=== PATIENT | female | born 1985 | race Caucasian/White ===

== ENCOUNTER 2016-07-04 11:32 | Inpatient (IN) | payer OTHER ==
[2016-07-04 13:01] LABS: BASOPHIL 0.3 % (0-2.0); EOSINOPHIL 0.2 % (0-4.5); MCHC 33.7 g/dl (32.0-36.0); MEAN PLT VOLUME 9.8 fl (7.5-11.1); NEUTROPHILS 80.3 % (42.8-82.8); PLATELET COUNT 193 K/MM3 (134-434); RDW 13.8 % (11.6-15.6)
[2016-07-04 13:35] LABS: URINE APPEARANCE CLEAR; URINE BILIRUBIN NEGATIVE (NEGATIVE); URINE COLOR YELLOW; URINE GLUCOSE (UA) NEGATIVE (NEGATIVE); URINE KETONE NEGATIVE (NEGATIVE); URINE LEUK ESTERASE NEGATIVE (NEGATIVE); URINE NITRITE NEGATIVE (NEGATIVE); URINE UROBILINOGEN NEGATIVE E.U./dl (0.2-1.0)
[2016-07-04 13:45] LABS: ALBUMIN 2.4 g/dl (3.4-5.0); ANION GAP 11 (8-16); BILIRUBIN,TOTAL 0.3 mg/dL (0.2-1.0); CO2 21 mmol/L (21-32); CREATININE 0.7 mg/dL (0.55-1.02); GLUCOSE,RANDOM 101 mg/dL (74-106); SGOT/AST 56 U/L (15-37); SGPT/ALT 71 U/L (12-78); TOT PROT 6.1 g/dl (6.4-8.2); URIC ACID 5.3 mg/dL (2.6-7.2)
[2016-07-04 13:46] LABS: ALK PHOS 333 U/L (45-117)
[2016-07-04 14:06] LABS: URINE BLOOD 1+ (NEGATIVE); URINE PROTEIN 2+ (NEGATIVE)
[2016-07-04 14:10] LABS: URINE BACTERIA RARE /hpf (NONE SEEN); URINE HYALINE CAST 1 /lpf; URINE MUCUS RARE; URINE RBC 9 /hpf (0-3); URINE WBC 10 /hpf (3-5)
[2016-07-04] MEDS ORDERED: TUBERCULIN PPD 5 TU/0.1ML SYRINGE (IN PATIENT USE ONLY) ID ONE (14:45)
[2016-07-04] MEDS ORDERED: DINOPROSTONE 10 MG VAGINAL SUPPOSITORY VG ONE (14:58)
--- NOTE | 2016-07-04 15:03 | HP ---
Past Medical History - Primary Care Physician PCP:: Chuy Dean - Admission Chief Complaint: 39.4 weeks. pih for cervidil induction History of Present Illness: to be induced - Past Medical History ...: 1 ...Para: 0 ...Term: 0 ...: 0 ...Spon : 0 ...Induced : 0 ...LMP: 10/01/15 ... Weeks Gestation by Dates: 39.4 ...EDC by Dates: 07/07/16 ...EDC by Sono: 07/07/16 - Past Surgical History Hx Myomectomy: No Hx Transabdominal Cerclage: No - Smoking History Smoking history: Never smoked - Alcohol/Substance Use Hx Alcohol Use: No - Social History Usual Living Arrangement: Yes: With Significant Other History of Recent Travel: No Home Medications - Allergies Allergies/Adverse Reactions: Allergies Allergy/AdvReac Type Severity Reaction Status Date / Time No Known Allergies Allergy Verified 07/04/16 12:51 - Home Medications Home Medications: Ambulatory Orders Pnv95/Ferrous Fumarate/FA [ Caplet] 1 tab PO DAILY 07/04/16 Review of Systems - Review of Systems Constitutional: reports: No Symptoms Eyes: reports: No Symptoms HENT: reports: No Symptoms Neck: reports: No Symptoms Cardiovascular: reports: No Symptoms Respiratory: reports: No Symptoms Gastrointestinal: reports: No Symptoms Genitourinary: reports: No Symptoms Musculoskeletal: reports: No Symptoms Integumentary: reports: No Symptoms Neurological: reports: No Symptoms Endocrine: reports: No Symptoms Hematology/Lymphatic: reports: No Symptoms Psychiatric: reports: No Symptoms Physical Exam - Maternity Vital Signs: Vital Signs Temperature 97.9 F 07/04/16 12:00 Pulse Rate 89 07/04/16 14:00 Respiratory Rate 18 07/04/16 14:00 Blood Pressure 137/85 07/04/16 14:00 O2 Sat by Pulse Oximetry (%) Constitutional: Yes: Well Nourished, No Distress, Calm Eyes: Yes: WNL, Conjunctiva Clear, EOM Intact HENT: Yes: WNL, Atraumatic, Normocephalic Neck: Yes: WNL, Supple, Trachea Midline Cardiovascular: Yes: WNL, Regular Rate and Rhythm Breast(s): Yes: WNL - Abdominal Exam/OB Fundal Height: 38 Contractions: No Regularity: Irritability Intensity: Unaware Monitor Mode: External Heart Rate Location: [facility] Category: I Accelerations: Uniform Decelerations: None - Vaginal Exam/OB Speculum Exam: No Dilatation (cm): closed Effacement (%): 0 Amniotic Membrane Status: Intact Nitrazine Test: Negative Presentation: Vertex/Position Station: -3 - Physical Exam Edema: Yes Edema: LLE: Trace, RLE: Trace ...Motor Strength: WNL Psychiatric: Yes: WNL - Labs Lab Results: CBC, BMP 07/04/16 12:20 07/04/16 12:20 Problem List - Problems (1) with 39 completed weeks gestation Code(s): Z3A.39 - 39 WEEKS GESTATION OF (2) induced hypertension, antepartum Code(s): O13.9 - GESTATIONAL HTN W/O SIGNIFICANT PROTEINURIA, UNSP TRIMESTER (3) Elective induction of labor planned Code(s): FYZ1684 - Assessment/Plan admit, fhm, cervidil rba discussed
[2016-07-04 15:14] LABS: INR 0.97 (0.82-1.09); PROTHROMBIN TIME (PATIENT) 10.7 SEC (9.98-11.88)
[2016-07-04 15:17] LABS: ACTIVATED PTT 29.1 SECONDS (26.9-34.4)
--- NOTE | 2016-07-04 16:00 | PN ---
Progress Note (short form) - Note Progress Note: cervidil inserted 3 08 pm, cx clp Problem List - Problems (1) with 39 completed weeks gestation Code(s): Z3A.39 - 39 WEEKS GESTATION OF (2) induced hypertension, antepartum Code(s): O13.9 - GESTATIONAL HTN W/O SIGNIFICANT PROTEINURIA, UNSP TRIMESTER (3) Elective induction of labor planned Code(s): [id number] -
[2016-07-04 16:20] VITALS: BMI 32.3
[2016-07-04] MEDS ORDERED: DEXTROSE 5%-LACTATED RINGERS 500 ML IV ONE ×4 (20:15→21:15)
[2016-07-05] MEDS ORDERED: OXYTOCIN 15 UNITS/ LR 250 ML 250 ML IVPB SCH (05:00)
--- NOTE | 2016-07-05 08:31 | PN ---
Progress Note (short form) - Note Progress Note: on pitocin , cx clp, vx -3 mi, fhr cat 1contraction q 2min Problem List - Problems (1) with 39 completed weeks gestation Code(s): Z3A.39 - 39 WEEKS GESTATION OF (2) induced hypertension, antepartum Code(s): O13.9 - GESTATIONAL HTN W/O SIGNIFICANT PROTEINURIA, UNSP TRIMESTER (3) Elective induction of labor planned Code(s): [id number] -
[2016-07-05] MEDS ORDERED: LABETALOL HCL 200 MG TABLET (FP) PO ONE (09:36)
[2016-07-05] MEDS ORDERED: CITRIC ACID/SODIUM CITRATE 30 ML UNIT-DOSE CUP PO ONE (10:24)
[2016-07-05] MEDS ORDERED: ELECTROLYTE-148 SOLN 1,000 ML IV SCH (10:30)
--- NOTE | 2016-07-05 10:30 | PN ---
Progress Note (short form) - Note Progress Note: c/o headache, crying, no blurred vision bp 156/98 abdomen soft, non tender cx clp, vx -3 mi, fhr cat 1 contraction q 3 min, wants c/s , risks discussed, Problem List - Problems (1) with 39 completed weeks gestation Code(s): Z3A.39 - 39 WEEKS GESTATION OF (2) induced hypertension, antepartum Code(s): O13.9 - GESTATIONAL HTN W/O SIGNIFICANT PROTEINURIA, UNSP TRIMESTER (3) Elective induction of labor planned Code(s): [id number] -
[2016-07-05] MEDS ORDERED: ACETAMINOPHEN 325 MG TABLET (FP) PO ONE (10:44)
[2016-07-05] MEDS: OXYTOCIN 20 UNITS in 0.9% NS 1,000 ML IV SCH ×2 (11:20→13:50)
[2016-07-05] MEDS ORDERED: ONDANSETRON 4 MG/2 ML VIAL IVPB PRN (11:35)
[2016-07-05] MEDS ORDERED: METHYLERGONOVINE MALEATE 0.2 MG/1 ML AMP IM PRN (12:07)
[2016-07-05] MEDS ORDERED: IBUPROFEN 600 MG TABLET (FP) PO PRN (12:07)
[2016-07-05] MEDS ORDERED: oxyCODONE HCL 5 MG TABLET PO PRN (12:07)
[2016-07-05] MEDS ORDERED: BENZOCAINE 28 GM HEMORRHOIDAL OINTMENT PR PRN (12:07)
[2016-07-05] MEDS ORDERED: WITCH HAZEL 50% (TUCKS) 40 PAD/JAR PAD TP PRN (12:07)
[2016-07-05] MEDS ORDERED: diphenhydrAMINE HCL 25 MG CAPSULE (FP) PO PRN (12:07)
[2016-07-05] MEDS ORDERED: BENZOCAINE 20% 57 GM BOTTLE TP PRN (12:07)
[2016-07-05] MEDS ORDERED: IBUPROFEN 800 MG/8 ML IJ IVPB PRN (12:07)
--- NOTE | 2016-07-05 16:26 | OP ---
DATE OF OPERATION: 07/05/2016 PREOPERATIVE DIAGNOSES: , 39 weeks; preeclampsia; Cervidil induction and Pitocin induction; failure of induction. POSTOPERATIVE DIAGNOSES: , 39 weeks; preeclampsia; Cervidil induction and Pitocin induction; failure of induction. PROCEDURE: Primary low-segment transverse section. SURGEON: iRtu Dean MD MISSILE INSPECTOR PREFLIGHT: DULCE Flores ANESTHESIA: Spinal. ANESTHESIOLOGIST: Henry Mello MD ESTIMATED BLOOD LOSS: 500 mL. DESCRIPTION: Patient was taken to operating room. Adequate spinal anesthesia. Abdomen and perineum was prepped and draped. Pfannenstiel abdominal skin incision was made, abdominal wall was cut layer by layer until peritoneum was exposed and incised. Upon entering abdominal cavity, lower uterine segment was identified and uterovesical fold of peritoneum established, bladder was pushed down. Then with the lower blade of the Mildred retractor in the pelvis, a low transverse incision was made, incision extended laterally. Amniotic sac was entered, clear fluid. Head delivered, nasopharynx was suctioned. Live baby was delivered from occiput posterior position, cord around the neck x1. Placenta was delivered manually. Uterine cavity was cleaned of all remaining tissue. Uterine incision was closed in 2 layers, 1st layer with 0 Biosyn continuous suture, the 2nd layer with 0 Biosyn imbricating the 1st layer. Bladder flap was closed with 0 Biosyn continuous suture. Both tubes and ovaries were checked, were normal, no active bleeding was seen. All the lap and sponge, instrument count were correct. Peritoneum was closed with 0 Biosyn continuous suture. Muscles were brought together with interrupted suture of 0 Biosyn. Fascia was closed with 0 Biosyn continuous suture, subcutaneous fat with interrupted suture of 0 Biosyn, and the skin was closed with 4-0 Biosyn subcuticular suture. Patient tolerated procedure well, left the OR in good condition. RITU DEAN M.D. [id number]
[2016-07-05] MEDS: CEFAZOLIN 1 GM/D5W 50 ML IVPB SCH (18:22)
[2016-07-05] MEDS: DEXTROSE 5%-LACTATED RINGERS 1,000 ML IV SCH (21:30)
[2016-07-06] MEDS: CEFAZOLIN 1 GM/D5W 50 ML IVPB SCH (01:00)
--- NOTE | 2016-07-06 08:24 | PN ---
Progress Note (short form) - Note Progress Note: pod 1 , pih, no c/o ,no headache, lloyd clear urine , adequate out put CBC, BMP 07/04/16 12:20 Last Vital Signs Temp Pulse Resp BP Pulse Ox 98.1 F 74 18 132/78 99 07/06/16 06:00 07/06/16 06:00 07/06/16 06:00 07/06/16 06:00 07/05/16 13:20 abdomen soft,no distension, no cva incision dry, clean no calf tenderness DTR normal, trace edema plan , monitor bp, ambulate, cbc , advance diet Problem List - Problems (1) with 39 completed weeks gestation Code(s): Z3A.39 - 39 WEEKS GESTATION OF (2) induced hypertension, antepartum Code(s): O13.9 - GESTATIONAL HTN W/O SIGNIFICANT PROTEINURIA, UNSP TRIMESTER (3) Elective induction of labor planned Code(s): [id number] -
[2016-07-06 09:04] LABS: BASOPHIL 0.3 % (0-2.0); EOSINOPHIL 0.4 % (0-4.5); MCH 29.6 pg (25.7-33.7); MCHC 34.2 g/dl (32.0-36.0); MEAN CELL VOLUME 86.7 fl (80-96); MEAN PLT VOLUME 9.6 fl (7.5-11.1); NEUTROPHILS 74.1 % (42.8-82.8); PLATELET COUNT 130 K/MM3 (134-434); RDW 14.1 % (11.6-15.6); WHITE BLOOD COUNT 8.2 K/mm3 (4.0-10.0)
[2016-07-06] MEDS: oxyCODONE HCL 5 MG TABLET PO PRN ×3 (09:53→23:09)
[2016-07-06] MEDS: SIMETHICONE 80 MG TAB.CHEW (FP) PO PRN ×3 (09:55→21:27)
[2016-07-06] MEDS ORDERED: BISACODYL 10 MG SUPP.RECT RC PRN (12:07)
--- NOTE | 2016-07-06 12:18 | PN ---
Progress Note (short form) - Note Progress Note: Anesthesia postop note 31 y/o F s/p spinal anesthesia for section, duramorph for postop pain management. POD#1, aaox3, vss, ambulating, no complaints. No anesthesia complications.
[2016-07-06] MEDS: ACETAMINOPHEN 325 MG TABLET (FP) PO PRN ×2 (17:30→23:08)
[2016-07-06] MEDS ORDERED: ACETAMINOPHEN 325 MG TABLET (FP) ONE (17:33)
[2016-07-07] MEDS: ACETAMINOPHEN 325 MG TABLET (FP) PO PRN ×3 (04:42→23:48)
[2016-07-07] MEDS: SIMETHICONE 80 MG TAB.CHEW (FP) PO PRN ×2 (04:42→23:48)
[2016-07-07] MEDS: LABETALOL HCL 200 MG TABLET (FP) PO PRN ×2 (08:44→22:07)
--- NOTE | 2016-07-07 09:37 | PN ---
Post Progress Note - Subjective Subjective: 31 P1 s/p 1' LST c/s for failed IOL for Preeclampsia Post Day: 2 Type of Delivery: Primary C/S Vital Signs: Vital Signs Temperature 98.6 F 07/06/16 22:00 Pulse Rate 84 07/06/16 22:00 Respiratory Rate 18 07/06/16 22:00 Blood Pressure 126/79 07/06/16 22:00 O2 Sat by Pulse Oximetry (%) 99 07/05/16 13:20 Breast Exam: Yes: Soft Uterus: Yes: Fundus Firm, Non-tender Incision: Yes: Sutures intact Abdomen/GI: Yes: Abdomen soft, Passing flatus, Tolerating PO Lochia: Yes: Rubra Lochia, amount: Small Extremities: Yes: Calves non-tender Activity: Ambulating - Labs Labs: CBC WBC 8.2 K/mm3 (4.0-10.0) 07/06/16 06:15 RBC 3.18 M/mm3 (3.60-5.2) L D 07/06/16 06:15 Hgb 9.4 GM/dL (10.7-15.3) L D 07/06/16 06:15 Hct 27.6 % (32.4-45.2) L D 07/06/16 06:15 MCV 86.7 fl (80-96) 07/06/16 06:15 MCHC 34.2 g/dl (32.0-36.0) 07/06/16 06:15 RDW 14.1 % (11.6-15.6) 07/06/16 06:15 Plt Count 130 K/MM3 (134-434) L D 07/06/16 06:15 MPV 9.6 fl (7.5-11.1) 07/06/16 06:15 Neutrophils % 74.1 % (42.8-82.8) 07/06/16 06:15 Lymphocytes % 18.2 % (8-40) D 07/06/16 06:15 Monocytes % 7.0 % (3.8-10.2) 07/06/16 06:15 Eosinophils % 0.4 % (0-4.5) D 07/06/16 06:15 Basophils % 0.3 % (0-2.0) 07/06/16 06:15 Retic Count 1.82 % (0.5-1.5) H 07/04/16 12:20 Haptoglobin 38 mg/dL (34-200) 07/04/16 12:20 Assessment/Plan 31 P1 s/p 1' LST c/s for failed IOL for Preeclampsia POD # 2 VSS, but BP still elevated, Systolic in 150s Repeat PEC labs Start Procardia XL 30mg consider D/C plan on Procardia Nausea from Percoset Start with Tylenol for pain managment Baby boy in the NICU for circ Rh +
[2016-07-07] MEDS ORDERED: ACETAMINOPHEN 325 MG TABLET (FP) PO PRN (09:56)
[2016-07-07 10:26] LABS: BASOPHIL 0.7 % (0-2.0); EOSINOPHIL 0.5 % (0-4.5); MCH 29.3 pg (25.7-33.7); MCHC 33.7 g/dl (32.0-36.0); MEAN CELL VOLUME 86.9 fl (80-96); MEAN PLT VOLUME 9.6 fl (7.5-11.1); NEUTROPHILS 85.4 % (42.8-82.8); PLATELET COUNT 209 K/MM3 (134-434); RDW 14.3 % (11.6-15.6); WHITE BLOOD COUNT 11.9 K/mm3 (4.0-10.0)
[2016-07-07 11:12] LABS: ALBUMIN 2.3 g/dl (3.4-5.0); ALK PHOS 276 U/L (45-117); ANION GAP 10 (8-16); BILIRUBIN,DIRECT 0.1 mg/dL (0.0-0.2); BILIRUBIN,TOTAL 0.3 mg/dL (0.2-1.0); CALCIUM 8.4 mg/dL (8.5-10.1); CO2 23 mmol/L (21-32); CREATININE 0.6 mg/dL (0.55-1.02); GLUCOSE,RANDOM 91 mg/dL (74-106); SGOT/AST 43 U/L (15-37); SGPT/ALT 48 U/L (12-78); TOT PROT 5.7 g/dl (6.4-8.2)
[2016-07-07] MEDS: NIFEdipine E.R. 30 MG TABLET (FP) PO SCH (11:42)
[2016-07-07] MEDS ORDERED: HEPATITIS B VIR VAC (ENGERIX) 10 MCG/0.5 ML VIAL IM ONE (16:30)
[2016-07-07] MEDS: DEXTROSE 5%-LACTATED RINGERS 1,000 ML IV SCH ×2 (20:06→20:20)
[2016-07-07] MEDS ORDERED: SENNOSIDES/DOCUSATE COMBO (SENNA PLUS) TABLET (UD) PO PRN (22:00)
[2016-07-07] MEDS: IBUPROFEN 400 MG TABLET (FP) PO PRN (23:48)
[2016-07-08 08:34] LABS: BASOPHIL 0.8 % (0-2.0); EOSINOPHIL 1.8 % (0-4.5); MCH 29.3 pg (25.7-33.7); MCHC 33.6 g/dl (32.0-36.0); MEAN CELL VOLUME 87.1 fl (80-96); MEAN PLT VOLUME 9.8 fl (7.5-11.1); NEUTROPHILS 66.3 % (42.8-82.8); PLATELET COUNT 176 K/MM3 (134-434); RDW 14.3 % (11.6-15.6); WHITE BLOOD COUNT 7.1 K/mm3 (4.0-10.0)
[2016-07-08] MEDS: NIFEdipine E.R. 30 MG TABLET (FP) PO SCH (09:31)
--- NOTE | 2016-07-08 13:50 | PATH ---
Surgical Pathology Report Patient Name: KATERIN MURRAY Med. Rec. #: [id number] /Age/Gender: 1985 (Age: 31) / F Account: [id number] Location: [facility] OBS/FISHER LAMPARA NET Taken: 07/05/2016 Received: 07/06/2016 Reported: 07/08/2016 Physicians: Chuy Dean M.D. Specimen(s) Received PLACENTA Clinical History , 39.5 weeks, failed induction, preeclampsia Primary c/section Final Diagnosis PLACENTA, DELIVERY: FOCALLY DISRUPTED THIRD TRIMESTER PLACENTA WITH MODERATE INCREASE IN PREVILLOUS, PERIVILLOUS, AND PRECHORIONIC FIBRIN DEPOSITION, DYSTROPHIC CALCIFICATIONS, FOCALLY INCREASED NUMBER OF SYNCYTIAL KNOTS, THREE VESSEL UMBILICAL CORD, AND PLACENTAL MEMBRANES WITH FOCAL AMNION HYPERPLASIA. Electronically Signed Hernando Brown M.D. Gross Description The specimen is received fresh, labeled "placenta" and is a 609 gram, 19.0 x 13.5 x 2.6 cm placenta with attached membranes and umbilical cord. The attached membranes are multani, translucent with focal opacities and insert marginally. The umbilical cord measures 37 cm in length and averages 1.1 cm in diameter. The cord inserts eccentrically, 3.5 cm to the nearest margin. No true knots or strictures are identified. Cut surface of the umbilical cord reveals 3 vessels. The surface is lau-blue with fibrin deposition and appropriate caliber vessels. The maternal surface is red-brown with focal defects. Sectioning reveals red-brown, spongy parenchyma. No focal lesions are identified. Cafeteria Manager sections are submitted in three cassettes as follows: 1- membrane rolls and umbilical cord; 2-3- full thickness sections of placenta. 07/07/2016 [facility]07/07/2016
[2016-07-08] MEDS: LABETALOL HCL 200 MG TABLET (FP) PO PRN (15:30)
--- NOTE | 2016-07-08 15:40 | PN ---
Post Progress Note - Subjective Subjective: No complaints, feels well Post Day: 3 Type of Delivery: Primary C/S Vital Signs: Vital Signs Temperature 97.9 F 07/08/16 14:00 Pulse Rate 90 07/08/16 14:00 Respiratory Rate 20 07/08/16 14:00 Blood Pressure 144/89 07/08/16 14:00 O2 Sat by Pulse Oximetry (%) 99 07/05/16 13:20 Breast Exam: Yes: Soft Uterus: Yes: Fundus below umbilicus Incision: Yes: Dressing dry and intact, Sutures intact Abdomen/GI: Yes: Abdomen soft, Passing flatus, Tolerating PO Lochia: Yes: Rubra Lochia, amount: Small Extremities: Yes: Edema (1+ bilaterally) Perineum: Yes: Intact Activity: Ambulating - Labs Labs: CBC WBC 7.1 K/mm3 (4.0-10.0) D 07/08/16 06:30 RBC 3.37 M/mm3 (3.60-5.2) L 07/08/16 06:30 Hgb 9.9 GM/dL (10.7-15.3) L D 07/08/16 06:30 Hct 29.3 % (32.4-45.2) L 07/08/16 06:30 MCV 87.1 fl (80-96) 07/08/16 06:30 MCHC 33.6 g/dl (32.0-36.0) 07/08/16 06:30 RDW 14.3 % (11.6-15.6) 07/08/16 06:30 Plt Count 176 K/MM3 (134-434) 07/08/16 06:30 MPV 9.8 fl (7.5-11.1) 07/08/16 06:30 Neutrophils % 66.3 % (42.8-82.8) D 07/08/16 06:30 Lymphocytes % 24.4 % (8-40) D 07/08/16 06:30 Monocytes % 6.7 % (3.8-10.2) 07/08/16 06:30 Eosinophils % 1.8 % (0-4.5) D 07/08/16 06:30 Basophils % 0.8 % (0-2.0) 07/08/16 06:30 Retic Count 1.82 % (0.5-1.5) H 07/04/16 12:20 Haptoglobin 38 mg/dL (34-200) 07/04/16 12:20 Assessment/Plan 31yo P1 s/p primary LT C/S, doing well stable, afebrile. care instructions reviewed. BP is mostly well controlled, with several elevations. Continue Procardia XL and Labetalol prn. Plan to d/c home tomorrow, if BP remain stable. Asymptomatic for s/sx of anemia. Continue routine postop care. Ambulation encouraged. Discharge instructions reviewed.
[2016-07-08] MEDS: valACYclovir HCL 500 MG TABLET (FP) PO SCH (17:38)
[2016-07-08] MEDS ORDERED: valACYclovir HCL 1000 MG TABLET PO SCH (18:00)
[2016-07-08] MEDS: IBUPROFEN 400 MG TABLET (FP) PO PRN (18:14)
[2016-07-09] MEDS: valACYclovir HCL 500 MG TABLET (FP) PO SCH (05:27)
[2016-07-09] MEDS: LABETALOL HCL 200 MG TABLET (FP) PO PRN (05:31)
--- NOTE | 2016-07-09 06:47 | DS ---
Physical Exam-FOREST MANAGEMENT PROFESSOR Vital Signs: Vital Signs Temperature 98.3 F 07/08/16 22:00 Pulse Rate 66 07/09/16 05:33 Respiratory Rate 18 07/08/16 22:00 Blood Pressure 142/82 07/09/16 05:33 O2 Sat by Pulse Oximetry (%) 99 07/05/16 13:20 Constitutional: Yes: Well Nourished Eyes: Yes: WNL, Occular Prosthesis Neck: Yes: WNL Cardiovascular: Yes: WNL Respiratory: Yes: WNL Gastrointestinal: Yes: WNL Renal/: Yes: WNL Pelvis: Yes: WNL External Genitalia: Yes: Normal ....Post : Yes: Uterus firm, Uterus non-tender, Slight lochia rubra Breast(s): Yes: WNL Musculoskeletal: Yes: WNL Extremities: Yes: WNL Edema: LUE: 1+, RUE: 1+, LLE: 1+, RLE: 1+ Wound/Incision: Yes: Clean/Dry, Sutures Intact Neurological: Yes: WNL Psychiatric: Yes: WNL Labs: CBC, BMP 07/08/16 06:30 07/07/16 10:20 Delivery - Delivery Section: Primary Type of Anesthesia: Spinal Episiotomy/Laceration: None EBL (cc): 500 Delivery, Single - Stages of Labor Date 1st Stage Initiatied: 07/05/16 Time 1st Stage Initiated: 05:30 Date of Delivery: 07/05/16 Time of Delivery: 11:19 Time Placenta Delivered: 11:20 Placenta: Yes: Expressed - Condition of Infant Salvage Machine Operator/Offset Machine Operator Present: Yes Name: Sherrie Rowe Infant Gender: Male Weight: 7 lb 9 oz Position: OP Total Hours ROM (Hrs/Mins): 0/2 - 1 Minute Total Score: 9 5 Minutes Total Score: 9 - [place] Feeding Plan Initial Plan: Exclusive throughout hospitalization Remarks - Remarks Remarks: 31yo P1 s/p 1 LST c/s for failed IOL due to PEC BP improved control on Procardia Will d/c on Procardia, BP home monitoring, has device Asked to call service if BPs higher than 150/90 Has cold sore, Valtrex given, asked not to kiss the baby RTO 1 wk Discharge Summary Reason For Visit: PRECLAMPSIA INDUCTION OF LABOR Current Active Problems Elective induction of labor planned (Acute) induced hypertension, antepartum (Acute) with 39 completed weeks gestation (Acute) - Home Medications Comprehensive Discharge Medication List: Ambulatory Orders Pnv95/Ferrous Fumarate/FA [ Caplet] 1 tab PO DAILY 07/04/16 Nifedipine ER [Procardia XL -] 30 mg PO DAILY #30 tab.er.24 07/08/16 Nifedipine [Procardia Xl] 30 mg PO DAILY 30 Days 07/08/16 Oxycodone HCl/Acetaminophen [Percocet 5-325 mg Tablet -] 1 - 2 tab PO Q6H PRN # 20 tab MDD 8 07/08/16
[2016-07-09] MEDS: IBUPROFEN 400 MG TABLET (FP) PO PRN (07:48)
[2016-07-09] MEDS: NIFEdipine E.R. 30 MG TABLET (FP) PO SCH (09:32)
[2016-07-09 09:35] VITALS: BP 137/72; PULSE 86; TEMP 98.5
== END 2016-07-09 11:35 | disposition home or self-care (01) | DRG 766 ==
LOC: JDEL 11:32 → JLDR 14:15 → J3W 07-05 15:24
PROVIDERS: ADMIT Obstetrics & Gynecology; ATTEND Obstetrics & Gynecology
PROC: 3E0P7GC Introduction of Other Therapeutic Substance into Female Reproductive, Via Natural or Artificial Opening (ICD-10-PCS; 2016-07-04)
PROC: 10D00Z1 Extraction of Products of Conception, Low, Open Approach (ICD-10-PCS; principal; 2016-07-05)
DX: O62.0 Primary inadequate contractions (principal); O11.4 Pre-existing hypertension with pre-eclampsia, complicating childbirth
CPT/HCPCS: 36415; 80053; 80076; 81003; 81015; 82977; 83010; 84550; 85025; 85044; 85610; 85730; 86593; 86850; 86900; 86901; 88307-TC

== ENCOUNTER 2024-02-20 21:29 | Emergency (ER) | payer OTHER ==
[2024-02-20 21:53] VITALS: BP 135/85; PULSE 108; RESP 16; TEMP 98; BMI 34.5
[2024-02-20 22:23] LABS: MCHC 32.5 g/dl (32.0-36.0); MEAN PLT VOLUME 8.7 fl (7.5-11.1); PLATELET COUNT 259.1 10^3/uL (134-434); RBC 4.67 10^6/uL (3.60-5.2); RDW 14.2 % (11.6-15.6); WHITE BLOOD COUNT 11.8 10^3/uL (4.0-10.8)
[2024-02-20 22:36] LABS: ALBUMIN 4.2 g/dl (3.4-5.0); ALK PHOS 142 U/L (45-117); ANION GAP 11 mmol/L (4-13); BILIRUBIN,TOTAL 0.7 mg/dl (0.2-1); CHLORIDE 103 mmol/L (98-107); CO2 22 mmol/L (21-32); CREATININE 0.7 mg/dl (0.6-1.3); GLUCOSE,RANDOM 111 mg/dl (74-106); POTASSIUM 3.7 mmol/L (3.5-5.1); SGOT/AST 77 U/L (15-37); SGPT/ALT 80 U/L (7-52); SODIUM 136 mmol/L (136-145); TOT PROT 6.9 g/dl (6.4-8.2)
[2024-02-20] MEDS ORDERED: MAG HYDROX/AL HYDROX/SIMETH 30 ML UNIT-DOSE CUP ONE (22:37)
[2024-02-20] MEDS: MAG HYDROX/AL HYDROX/SIMETH 30 ML UNIT-DOSE CUP PO ONE (22:40)
[2024-02-20 23:04] LABS: PLATELET ESTIMATE ADEQUATE
== END 2024-02-20 22:44 | disposition home or self-care (01) ==
LOC: FER 21:29
DX: K29.20 Alcoholic gastritis without bleeding (principal); F10.10 Alcohol abuse, uncomplicated; Y90.9 Presence of alcohol in blood, level not specified
CPT/HCPCS: 36415; 71046-TC-FY; 74019-TC-FY; 80053; 85025; 93005; 93010; 99285-25